=== PATIENT | male | born 1990 | race Asian ===

== ENCOUNTER 2018-06-24 20:08 | Inpatient (IN) | payer BC ==
[2018-06-24] MEDS ORDERED: NORMAL SALINE 1000 ML 1,000 ML IV ONE (20:34)
[2018-06-24] MEDS ORDERED: IBUPROFEN 800 MG TABLET PO ONE (20:37)
[2018-06-24 22:37] LABS: ABSOLUTE LYMPHOCYTES (AUTO) 1.1 10^3/uL (0.5-4.7); ABSOLUTE MONOCYTES (AUTO) 1.1 10^3/uL (0.1-1.4); ABSOLUTE NEUT (AUTO) 11.9 10^3/uL (1.7-8.2); BASOPHILS % (AUTO) 0.3 % (0-2); HEMATOCRIT 38.7 % (37.9-51.0); HEMOGLOBIN 13.4 g/dL (13.5-17.0); LYMPHOCYTES % (AUTO) 7.8 % (13-45); MEAN CORPUSCULAR HEMOGLOBIN 28.8 pg (27.0-33.4); MEAN CORPUSCULAR HGB CONC 34.6 g/dL (32.0-36.0); MEAN CORPUSCULAR VOLUME 83 fl (80-97); PLATELET COUNT 232 10^3/uL (150-450); RED BLOOD COUNT 4.65 10^6/uL (4.35-5.55); RED CELL DISTRIBUTION WIDTH 12.3 % (11.5-14.0); SEGMENTED NEUTROPHILS % (AUTO) 83.9 % (42-78); TOTAL CELLS COUNTED % (AUTO) 100 %; WHITE BLOOD COUNT 14.1 10^3/uL (4.0-10.5)
[2018-06-24 22:46] LABS: ALANINE AMINOTRANSFERASE 34 U/L (21-72); ALBUMIN 4.4 g/dL (3.5-5.0); ALKALINE PHOSPHATASE 52 U/L (38-126); ANION GAP 13 (5-19); ASPARTATE AMINO TRANSFERASE 27 U/L (17-59); BILIRUBIN,DIRECT 0.6 mg/dL (0.0-0.4); BILIRUBIN,TOTAL 1.1 mg/dL (0.2-1.3); BLOOD UREA NITROGEN 13 mg/dL (7-20); CALCIUM 9.3 mg/dL (8.4-10.2); CARBON DIOXIDE 23 mmol/L (22-30); CHLORIDE 99 mmol/L (98-107); GLUCOSE 108 mg/dL (75-110); POTASSIUM 3.7 mmol/L (3.6-5.0); SODIUM 134.7 mmol/L (137-145)
[2018-06-25] MEDS ORDERED: CEFTRIAXONE 1 GM/D5W RTU 1 GM/50 ML RTUPB IV ONE (07:18)
--- NOTE | 2018-06-25 07:22 | ER Document Report ---
ED Medical Screen (RME) - General Chief Complaint: Wound Infection Stated Complaint: POSSIBLE INSECT BITE Time Seen by Provider: 06/25/18 07:14 Mode of Arrival: Ambulatory Information source: Patient Notes: Patient presents to emergency department with complaints of pain to the right lower anterior leg. Ports spider bite that occurred on Monday that was itchy. Monday area became inflammed red. Reports some pain radiating into his lateral thigh area. He went to urgent care last night at approximately 7:55 PM and was told to come to ED. Reports temperature of 103 upon arrival. He was given Tylenol at urgent care and ibuprofen upon arrival here. Denies vomiting diarrhea. - Related Data Allergies/Adverse Reactions: No Known Allergies Allergy (Unverified 06/24/18 20:13) Past Medical History - Social History Frequency of alcohol use: None Drug Abuse: None Renal/ Medical History: Denies: Hx Peritoneal Dialysis Physical Exam - Vital signs Vitals: Temp Pulse BP Pulse Ox 102.7 F H 128 H 139/79 H 97 06/24/18 20:24 06/24/18 20:24 06/24/18 20:24 06/24/18 20:24 Course - Vital Signs Vital signs: Temp Pulse Resp BP Pulse Ox 98.6 F 90 18 126/77 H 99 06/25/18 05:38 06/25/18 05:38 06/25/18 05:38 06/25/18 05:38 06/25/18 05:38 - Laboratory Result Diagrams: 06/24/18 22:15 06/24/18 22:15 Laboratory results interpreted by me: 06/24/18 06/24/18 22:15 22:15 WBC 14.1 H Hgb 13.4 L Seg Neutrophils % 83.9 H Lymphocytes % 7.8 L Absolute Neutrophils 11.9 H Sodium 134.7 L Direct Bilirubin 0.6 H
[2018-06-25] MEDS ORDERED: CEFTRIAXONE SODIUM 1,000 MG in NORMAL SALINE 50 ML IV ONE (08:00)
[2018-06-25] MEDS ORDERED: VANCOMYCIN HCL INJ 1000 MG VIAL IV ONE (08:06)
--- NOTE | 2018-06-25 08:13 | ER Document Report ---
ED General - General Chief Complaint: Wound Infection Stated Complaint: POSSIBLE INSECT BITE Time Seen by Provider: 06/25/18 07:14 Mode of Arrival: Ambulatory - HPI Notes: Patient is a 28-year-old male that presents to the emergency department for chief complaint of right leg insect bite. Patient presents to the emergency room for bite to his right lower extremity. He states days ago he noticed a scab that was itchy on his right rodgers. The following day he started to develop fevers. His highest fever at home was 103. Patient states yesterday the area began to get red and more swollen. He is now having pain radiating up into his thigh. The pain is sharp and constant. It is worse with palpitation and ambulation. It is relieved slightly with elevation of the leg. He did not see an insect bite or remember getting bit by anything. He denies history of abscess in the past. He denies IV drug use. He was seen at an urgent care yesterday evening and referred to the emergency room for further evaluation. Patient states ibuprofen did give him relief of his fever symptoms and pain. Past Medical History: Negative Past Surgical History: Negative Social History: Denies drugs alcohol and tobacco Family History: Reviewed and noncontributory for presenting illness Allergies: Reviewed, see documented allergy list. REVIEW OF SYSTEMS: CONSTITUTIONAL : fever No chills No diaphoresis No recent illness EENT: No vision changes No congestion No sore throat CARDIOVASCULAR: No chest pain No palpitations RESPIRATORY: No shortness of breath No cough No difficulty breathing GASTROINTESTINAL: No abdominal pain No nausea No vomiting No diarrhea GENITOURINARY: No dysuria No hematuria No difficulty urinating MUSCULOSKELETAL: No back pain No leg pain No arm pain SKIN: No rashes Right leg lesion LYMPHATIC: No swollen, enlarged glands. NEUROLOGICAL: No lightheadedness No headache No weakness No paresthesias PSYCHIATRIC: No anxiety No depression PHYSICAL EXAMINATION: Vital signs reviewed, nursing noted reviewed. GENERAL: Well-appearing, well-nourished and in no acute distress. HEAD: Atraumatic, normocephalic. EYES: Eyes appear normal, extraocular movements intact, sclera anicteric, conjunctiva are normal. ENT: nares patent, oropharynx clear without exudates. Moist mucous membranes. NECK: Normal range of motion, supple without lymphadenopathy LUNGS: Breath sounds clear to auscultation bilaterally and equal. No wheezes rales or rhonchi. HEART: Regular rate and rhythm without murmurs ABDOMEN: Soft, nontender, normoactive bowel sounds. No rebound, guarding, or rigidity. No masses appreciated. EXTREMITIES: Nontender, good range of motion, no pitting or edema. NEUROLOGICAL: No focal neurological deficits. Moves all extremities spontaneously Motor and sensory grossly intact on exam. PSYCH: Normal mood, normal affect. SKIN: Warm, Dry, normal turgor. Right pretibial area of induration, calor and erythema with central clearing consistent. Serous drainage from central clearing. Erythematous streaking up medial thigh - Related Data Allergies/Adverse Reactions: No Known Allergies Allergy (Unverified 06/24/18 20:13) Past Medical History - General Information source: Patient - Social History Smoking Status: Never Smoker Frequency of alcohol use: None Drug Abuse: None Family History: Reviewed & Not Pertinent Patient has suicidal ideation: No Patient has homicidal ideation: No Renal/ Medical History: Denies: Hx Peritoneal Dialysis Review of Systems - Review of Systems Notes: Dictated Physical Exam - Vital signs Vitals: Temp Pulse BP Pulse Ox 102.7 F H 128 H 139/79 H 97 06/24/18 20:24 06/24/18 20:24 06/24/18 20:24 06/24/18 20:24 - Notes Notes: Dictated Course - Re-evaluation Re-evalutation: 06/25/18 08:12 Vitals reviewed. Patient is afebrile. Nursing notes reviewed. He has significant erythema and cellulitis to his right lower extremity with lymphatic streaking through medial thigh. Patient is requiring IV antibiotics for further treatment. He was given a dose of vancomycin and fluids in the emergency room. Patient is meeting sepsis criteria for fever and white count, blood cultures were obtained. Patient has remained stable while in the emergency room. He will be admitted to the hospital for further IV antibiotics. Case discussed with admitting physician . Laboratory 06/24/18 06/24/18 06/25/18 22:15 22:15 09:14 WBC 14.1 H RBC 4.65 Hgb 13.4 L Hct 38.7 MCV 83 MCH 28.8 MCHC 34.6 RDW 12.3 Plt Count 232 Seg Neutrophils % 83.9 H Lymphocytes % 7.8 L Monocytes % 8.0 Eosinophils % 0.0 Basophils % 0.3 Absolute Neutrophils 11.9 H Absolute Lymphocytes 1.1 Absolute Monocytes 1.1 Absolute Eosinophils 0.0 Absolute Basophils 0.0 Sodium 134.7 L Potassium 3.7 Chloride 99 Carbon Dioxide 23 Anion Gap 13 BUN 13 Creatinine 0.96 Est GFR ( Amer) > 60 Est GFR (Non-Af Amer) > 60 Glucose 108 Lactic Acid 3.9 H Calcium 9.3 Total Bilirubin 1.1 Direct Bilirubin 0.6 H Neonat Total Bilirubin Not Reportable Neonat Direct Bilirubin Not Reportable Neonat Indirect Bili Not Reportable AST 27 ALT 34 Alkaline Phosphatase 52 Total Protein 8.0 Albumin 4.4 - Vital Signs Vital signs: Temp Pulse Resp BP Pulse Ox 98.6 F 90 18 126/77 H 99 06/25/18 05:38 06/25/18 05:38 06/25/18 05:38 06/25/18 05:38 06/25/18 05:38 - Laboratory Result Diagrams: 06/24/18 22:15 06/24/18 22:15 Laboratory results interpreted by me: 06/24/18 06/24/18 06/25/18 22:15 22:15 09:14 WBC 14.1 H Hgb 13.4 L Seg Neutrophils % 83.9 H Lymphocytes % 7.8 L Absolute Neutrophils 11.9 H Sodium 134.7 L Lactic Acid 3.9 H Direct Bilirubin 0.6 H Discharge - Discharge Clinical Impression: Cellulitis Qualifiers: Site of cellulitis: extremity Site of cellulitis of extremity: lower extremity Laterality: right Qualified Code(s): L03.115 - Cellulitis of right lower limb Sepsis Qualifiers: Sepsis type: sepsis due to unspecified organism Qualified Code(s): A41.9 - Sepsis, unspecified organism Condition: Stable Disposition: ADMITTED INPATIENT Admitting Provider: Hospitalist
[2018-06-25] MEDS ORDERED: NORMAL SALINE 1000 ML 1,000 ML IV ONE (11:12)
[2018-06-25 12:18] LABS: APPEARANCE,URINE SLIGHTLY-CLOUDY; BILIRUBIN,URINE NEGATIVE (NEGATIVE); COLOR,URINE YELLOW; GLUCOSE, URINE NEGATIVE (NEGATIVE); KETONES,URINE 80 mg/dL (NEGATIVE); LEUKOCYTE ESTERASE,URINE NEGATIVE (NEGATIVE); NITRITE,URINE NEGATIVE (NEGATIVE); PROTEIN,URINE >=500 mg/dL (NEGATIVE); URINE SPECIFIC GRAVITY 1.026
[2018-06-25] MEDS ORDERED: ACETAMINOPHEN 325 MG TABLET ONE (13:55)
[2018-06-25] MEDS ORDERED: IBUPROFEN 400 MG TABLET PO PRN (15:41)
[2018-06-25] MEDS ORDERED: RINGERS SOLUTION,LACTATED 1,000 ML IV PRN (17:38)
[2018-06-25] MEDS ORDERED: ONDANSETRON HCL INJ/PF 4 MG/2 ML SDV IV PRN (17:54)
[2018-06-25] MEDS ORDERED: CEFTRIAXONE 2 GM/D5W RTU 2 GM/50 ML RTUPB IV SCH (18:00)
[2018-06-25] MEDS ORDERED: CEFTRIAXONE SODIUM 2,000 MG in NORMAL SALINE 100 ML IV SCH (22:00)
--- NOTE | 2018-06-25 23:51 | PDOC H&P ---
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 He has recently suffered some ant bites on his fingers well working. Denies any known tick bites. The scab was somewhat pruritic and he scratched it off. The next day he began to develop some redness. By the next day he developed patch of increasing erythema progressively increasing in size with associated pain and swelling, and then developed fever. He presented to urgent care where he was seen and referred to the emergency department. In the emergency department, he was felt to have cellulitis significant enough to require hospitalization, and in fact met criteria for sepsis with fever, tachycardia, leukocytosis, and identifiable infectious source. No organ dysfunction. He was given 1 dose of vancomycin in the ER, then referred to the hospitalist for admission for further evaluation and treatment.. Past Medical History Medical History: None Psychiatric Medical History: Denies: Depression Past Surgical History Past Surgical History: Reports: None Social History Information Source: Patient, Parent Smoking Status: Never Smoker Frequency of Alcohol Use: None Hx Recreational Drug Use: No Drugs: None Hx Prescription Drug Abuse: No - Advance Directive Resuscitation Status: Full Code Family History Family History: DM Parental Family History Reviewed: Yes Children Family History Reviewed: NA Sibling(s) Family History Reviewed.: Yes Medication/Allergy Home Medications: No Home Medications 06/25/18 Allergies/Adverse Reactions: No Known Allergies Allergy (Unverified 06/24/18 20:13) Review of Systems All systems: reviewed and no additional remarkable complaints except as stated Physical Exam Vital Signs: Temp Pulse Resp BP Pulse Ox 102.8 F H 114 H 18 119/59 L 96 06/25/18 16:00 06/25/18 16:00 06/25/18 16:00 06/25/18 16:00 06/25/18 16:00 Additional comments: Constitutional: Well-developed, well-nourished, no apparent distress. ENT: Oral mucous membranes pink and moist. Sclera anicteric. Conjunctive are noninjected. Neck: No visible JVD. Trachea midline. No palpable lymphadenopathy. Lungs: Clear to auscultation bilaterally. Heart: Regular rhythm, tachycardic mildly, no murmur or rub. Abdomen: Low pitched active bowel sounds, soft, nontender, nondistended. Extremities: No clubbing or cyanosis. 1+ edema of the right lower extremity into the foot. Skin: Warm, dry, intact over the vast majority of skin surface. Large bright red confluent erythema patch over the right pretibial area with a centrally located pinhole size open wound draining small amount of whitish yellow pus surrounded by approximately 1 cm x 1.5 cm dark purple tissue. Margins of erythematous patch are fairly well demarcated. Area is hot to the touch. Tender to palpation. No palpable fluctuance. No loose sliding skin or ecchymosis to suggest necrotizing fasciitis. There is a faint red streak of erythema up the medial thigh from the knee to the groin approximately 2 cm wide. This is not hot, but is mildly tender to palpation. No palpable or tender inguinal lymph nodes in the right inguinal canal. Neurologic: Neurovascularly intact distally in the right lower extremity. No focal deficits demonstrated. Results Laboratory Results: 06/25/18 06/25/18 12:00 13:27 Lactic Acid 1.6 Urine Color YELLOW Urine Appearance SLIGHTLY-CLOUDY Urine pH 5.0 Ur Specific [place] 1.026 Urine Protein >=500 H Urine Glucose (UA) NEGATIVE Urine Ketones 80 H Urine Blood SMALL H Urine Nitrite NEGATIVE Ur Leukocyte Esterase NEGATIVE Urine WBC (Auto) 4 Urine RBC (Auto) 4 Assessment & Plan - Diagnosis (1) Sepsis Qualifiers: Sepsis type: sepsis due to unspecified organism Qualified Code(s): A41.9 - Sepsis, unspecified organism Is this a current diagnosis for this admission?: Yes Plan: Continue vancomycin in case of community acquired MRSA, managed by pharmacy. Add Rocephin to cover other usual staph and strep organisms associated with cellulitis. It appears he may have received 1 L of IV fluid in urgent care. Received 1 L IV fluid in ER. By my calculation of 30 mL/kilogram, he should get a total of about 2850 mL IV fluid, so we will run in another liter at 500 mL/hour. Initial lactic acid level was elevated at 3.9, but second levels already normalized to 1.6. Tylenol 650 mg orally every 4 hours as needed fever or pain alternating with ibuprofen 400 mg orally every 4 hours as needed for pain or fever, so that he could potentially receive anti-pyretic/analgesic every 2 hours. Await results of blood cultures drawn in the ER Will get wound culture as well. (2) Cellulitis of right lower extremity without foot Is this a current diagnosis for this admission?: Yes Plan: Same as above for sepsis. Also, elevate right lower extremity with foot of bed and with pillows - Time Time Spent: 50 to 70 Minutes Anticipated discharge: Home Within: within 72 hours
[2018-06-26] MEDS: ACETAMINOPHEN 325 MG TABLET PO PRN ×2 (04:05→20:14)
[2018-06-26 07:15] LABS: ABSOLUTE LYMPHOCYTES (AUTO) 0.8 10^3/uL (0.5-4.7); ABSOLUTE MONOCYTES (AUTO) 1.3 10^3/uL (0.1-1.4); ABSOLUTE NEUT (AUTO) 9.4 10^3/uL (1.7-8.2); BASOPHILS % (AUTO) 0.1 % (0-2); EOSINOPHILS % (AUTO) 0.4 % (0-6); HEMATOCRIT 34.9 % (37.9-51.0); HEMOGLOBIN 12.3 g/dL (13.5-17.0); LYMPHOCYTES % (AUTO) 6.8 % (13-45); MEAN CORPUSCULAR HEMOGLOBIN 28.9 pg (27.0-33.4); MEAN CORPUSCULAR HGB CONC 35.2 g/dL (32.0-36.0); MEAN CORPUSCULAR VOLUME 82 fl (80-97); PLATELET COUNT 174 10^3/uL (150-450); RED BLOOD COUNT 4.25 10^6/uL (4.35-5.55); RED CELL DISTRIBUTION WIDTH 12.2 % (11.5-14.0); SEGMENTED NEUTROPHILS % (AUTO) 81.7 % (42-78); TOTAL CELLS COUNTED % (AUTO) 100 %; WHITE BLOOD COUNT 11.5 10^3/uL (4.0-10.5)
[2018-06-26 07:33] LABS: ANION GAP 10 (5-19); BLOOD UREA NITROGEN 7 mg/dL (7-20); CALCIUM 8.5 mg/dL (8.4-10.2); CARBON DIOXIDE 22 mmol/L (22-30); CHLORIDE 105 mmol/L (98-107); GLUCOSE 118 mg/dL (75-110); POTASSIUM 3.4 mmol/L (3.6-5.0)
[2018-06-26] MEDS ORDERED: VANCOMYCIN HCL 0 MG in DEXTROSE 5%-WATER 250 ML IV NR (09:30)
[2018-06-26] MEDS: ENOXAPARIN SODIUM INJ 40 MG/0.4 ML DISP.SYRIN SUBCUT SCH (10:24)
[2018-06-26] MEDS: VANCOMYCIN HCL 1,250 MG in DEXTROSE 5%-WATER 250 ML IV SCH ×3 (11:44→23:17)
--- NOTE | 2018-06-26 16:13 | PDOC PROGRESS REPORT ---
Subjective Progress Note for:: 06/26/18 Subjective:: Assumed care today. Mr. Michele is a 28 yr male with no significant PMH who was admitted for right leg cellulitis. No acute event overnight. He says the pain is slightly better today. He continues to have erythema and tenderness on the right leg. No fever or chills. Reason For Visit: RLE CELLULITUS,SEPSIS Physical Exam Vital Signs: Temp Pulse Resp BP Pulse Ox 99.1 F 102 H 18 127/72 H 100 06/26/18 15:17 06/26/18 15:17 06/26/18 15:17 06/26/18 15:17 06/26/18 15:17 Intake & Output 06/25/18 06/26/18 06/27/18 06:59 06:59 06:59 Intake Total 3100 250 Balance 3100 250 General appearance: PRESENT: no acute distress, well-developed, well-nourished Head exam: PRESENT: atraumatic, normocephalic Eye exam: PRESENT: conjunctiva pink, EOMI, PERRLA. ABSENT: scleral icterus Ear exam: PRESENT: normal external ear exam Mouth exam: PRESENT: moist, tongue midline Neck exam: ABSENT: carotid bruit, JVD, lymphadenopathy, thyromegaly Respiratory exam: PRESENT: clear to auscultation francisca. ABSENT: rales, rhonchi, wheezes Cardiovascular exam: PRESENT: RRR. ABSENT: diastolic murmur, rubs, systolic murmur Pulses: PRESENT: normal dorsalis pedis pul GI/Abdominal exam: PRESENT: normal bowel sounds, soft. ABSENT: distended, guarding, mass, organolmegaly, rebound, tenderness Rectal exam: PRESENT: deferred Musculoskeletal exam: PRESENT: other - Note of erythematous and tender areas of the right leg, full peripheral pulses, lesions have not gone beyond the demarcated lesions in the right leg but patient does have an area of erythema on the right medial thigh which he says has been there when he was admitted. Neurological exam: PRESENT: alert, awake, oriented to person, oriented to place , oriented to time, oriented to situation, CN II-XII grossly intact. ABSENT: motor sensory deficit Results Laboratory Results: 06/26/18 06:53 06/26/18 06:53 06/26/18 06/26/18 06:53 06:53 WBC 11.5 H RBC 4.25 L Hgb 12.3 L Hct 34.9 L MCV 82 MCH 28.9 MCHC 35.2 RDW 12.2 Plt Count 174 Seg Neutrophils % 81.7 H Lymphocytes % 6.8 L Monocytes % 11.0 Eosinophils % 0.4 Basophils % 0.1 Absolute Neutrophils 9.4 H Absolute Lymphocytes 0.8 Absolute Monocytes 1.3 Absolute Eosinophils 0.0 Absolute Basophils 0.0 Sodium 137.0 Potassium 3.4 L Chloride 105 Carbon Dioxide 22 Anion Gap 10 BUN 7 Creatinine 0.69 Est GFR ( Amer) > 60 Est GFR (Non-Af Amer) > 60 Glucose 118 H Calcium 8.5 Magnesium 2.0 Assessment & Plan - Diagnosis (1) Sepsis Qualifiers: Sepsis type: sepsis due to unspecified organism Qualified Code(s): A41.9 - Sepsis, unspecified organism Is this a current diagnosis for this admission?: Yes Plan: Sepsis secondary to right leg cellulitis. Patient did have initial lactic acidosis which has since resolved after fluid resuscitation. Initial blood culture grew gram-positive cocci 1/2 bottles. Rocephin switched to vancomycin. (2) Cellulitis Qualifiers: Site of cellulitis: extremity Site of cellulitis of extremity: lower extremity Laterality: right Qualified Code(s): L03.115 - Cellulitis of right lower limb Is this a current diagnosis for this admission?: Yes Plan: Right leg cellulitis. Patient is currently on Rocephin. Blood culture came back positive initially for gram-positive cocci 1/2. Will switch Rocephin to vancomycin for now. (3) Gram-positive bacteremia Is this a current diagnosis for this admission?: Yes Plan: As mentioned, initial blood culture grew gram-positive cocci 1/2. Switch Rocephin to vancomycin. Will de-escalate pending final blood culture results.
[2018-06-27] MEDS: VANCOMYCIN HCL 1,250 MG in DEXTROSE 5%-WATER 250 ML IV SCH ×2 (05:26→12:02)
[2018-06-27] MEDS: ENOXAPARIN SODIUM INJ 40 MG/0.4 ML DISP.SYRIN SUBCUT SCH (08:59)
--- NOTE | 2018-06-27 16:01 | PDOC PROGRESS REPORT ---
Subjective Progress Note for:: 06/27/18 Subjective:: Assumed care today. Mr. Michele is a 28 yr male with no significant PMH who was admitted for right leg cellulitis. No acute event overnight. He says the pain is slightly better today. He continues to have erythema and tenderness on the right leg. No fever or chills. Upon re-evaluation of the right lower extremity, the erythema on the right leg has been about the same but the erythema on the right thigh has increased from yesterday. Reason For Visit: RLE CELLULITUS,SEPSIS Physical Exam Vital Signs: Temp Pulse Resp BP Pulse Ox 98.2 F 82 18 125/72 98 06/27/18 11:54 06/27/18 11:54 06/27/18 11:54 06/27/18 11:54 06/27/18 11:54 Intake & Output 06/26/18 06/27/18 06/28/18 06:59 06:59 06:59 Intake Total 3100 500 1440 Balance 3100 500 1440 General appearance: PRESENT: no acute distress, well-developed, well-nourished Head exam: PRESENT: atraumatic, normocephalic Eye exam: PRESENT: conjunctiva pink, EOMI, PERRLA. ABSENT: scleral icterus Ear exam: PRESENT: normal external ear exam Mouth exam: PRESENT: moist, tongue midline Neck exam: ABSENT: carotid bruit, JVD, lymphadenopathy, thyromegaly Respiratory exam: PRESENT: clear to auscultation francisca. ABSENT: rales, rhonchi, wheezes Cardiovascular exam: PRESENT: RRR. ABSENT: diastolic murmur, rubs, systolic murmur Pulses: PRESENT: normal dorsalis pedis pul GI/Abdominal exam: PRESENT: normal bowel sounds, soft. ABSENT: distended, guarding, mass, organolmegaly, rebound, tenderness Rectal exam: PRESENT: deferred Musculoskeletal exam: PRESENT: other - Note of erythematous and tender areas of the right leg, full peripheral pulses, lesions have not gone beyond the demarcated lesions in the right leg but patient does the erythema on the right medial thigh has increased from yesterday Neurological exam: PRESENT: alert, awake, oriented to person, oriented to place , oriented to time, oriented to situation, CN II-XII grossly intact. ABSENT: motor sensory deficit Results Laboratory Results: 06/26/18 06:53 06/26/18 06:53 Assessment & Plan - Diagnosis (1) Sepsis Qualifiers: Sepsis type: sepsis due to unspecified organism Qualified Code(s): A41.9 - Sepsis, unspecified organism Is this a current diagnosis for this admission?: Yes Plan: Sepsis secondary to right leg cellulitis. Patient did have initial lactic acidosis which has since resolved after fluid resuscitation. Initial blood culture grew gram-positive cocci 1/2 bottles. Wound culture grew group A beta Strep. Will switch vancomycin to clindamycin. (2) Cellulitis Qualifiers: Site of cellulitis: extremity Site of cellulitis of extremity: lower extremity Laterality: right Qualified Code(s): L03.115 - Cellulitis of right lower limb Is this a current diagnosis for this admission?: Yes Plan: Right leg cellulitis. Blood culture came back positive initially for gram- positive cocci 1/2. Erythema on the right medial thigh has increased in size. Wound culture grew group A beta Strep. Will switch vancomycin to clindamycin. (3) Gram-positive bacteremia Is this a current diagnosis for this admission?: Yes Plan: As #2. - Time Time Spent with patient: 15-24 minutes
[2018-06-27] MEDS: CLINDAMYCIN 300 MG/D5W RTU 300 MG/50 ML RTUPB IV SCH ×2 (16:09→21:00)
[2018-06-28] MEDS: CLINDAMYCIN 300 MG/D5W RTU 300 MG/50 ML RTUPB IV SCH ×2 (03:07→12:57)
[2018-06-28 08:53] LABS: ABSOLUTE BASOPHILS # (AUTO) 0.1 10^3/uL (0.0-0.2); ABSOLUTE EOSINOPHILS # (AUTO) 0.4 10^3/uL (0.0-0.6); ABSOLUTE LYMPHOCYTES (AUTO) 1.5 10^3/uL (0.5-4.7); ABSOLUTE MONOCYTES (AUTO) 0.6 10^3/uL (0.1-1.4); ABSOLUTE NEUT (AUTO) 4.2 10^3/uL (1.7-8.2); BASOPHILS % (AUTO) 0.8 % (0-2); EOSINOPHILS % (AUTO) 6.5 % (0-6); HEMATOCRIT 37.6 % (37.9-51.0); HEMOGLOBIN 12.7 g/dL (13.5-17.0); LYMPHOCYTES % (AUTO) 22.6 % (13-45); MEAN CORPUSCULAR HEMOGLOBIN 28.1 pg (27.0-33.4); MEAN CORPUSCULAR HGB CONC 33.9 g/dL (32.0-36.0); MEAN CORPUSCULAR VOLUME 83 fl (80-97); MONOCYTES % (AUTO) 8.2 % (3-13); PLATELET COUNT 276 10^3/uL (150-450); RED BLOOD COUNT 4.53 10^6/uL (4.35-5.55); RED CELL DISTRIBUTION WIDTH 12.6 % (11.5-14.0); SEGMENTED NEUTROPHILS % (AUTO) 61.9 % (42-78); TOTAL CELLS COUNTED % (AUTO) 100 %; WHITE BLOOD COUNT 6.8 10^3/uL (4.0-10.5)
[2018-06-28 09:14] LABS: ANION GAP 9 (5-19); BLOOD UREA NITROGEN 10 mg/dL (7-20); CALCIUM 8.8 mg/dL (8.4-10.2); CARBON DIOXIDE 26 mmol/L (22-30); CHLORIDE 106 mmol/L (98-107); GLUCOSE 111 mg/dL (75-110); POTASSIUM 3.8 mmol/L (3.6-5.0); SODIUM 140.7 mmol/L (137-145)
[2018-06-28] MEDS: ENOXAPARIN SODIUM INJ 40 MG/0.4 ML DISP.SYRIN SUBCUT SCH (12:57)
--- NOTE | 2018-06-28 12:59 | PDOC DISCHARGE SUMMARY ---
General - Admit/Disc Date/PCP Admission Date/Primary Care Provider: 06/25/18 10:54 Discharge Date: 06/28/18 - Discharge Diagnosis (1) Sepsis Is this a current diagnosis for this admission?: Yes (2) Cellulitis Is this a current diagnosis for this admission?: Yes (3) Gram-positive bacteremia Is this a current diagnosis for this admission?: Yes - Additional Information Resuscitation Status: Full Code Discharge Diet: As Tolerated Discharge Activity: Activity As Tolerated Prescriptions: Clindamycin HCl 300 mg PO Q8H 5 Days #15 capsule Home Medications: Clindamycin HCl 300 mg PO Q8H 5 Days #15 capsule 06/28/18 History of Present Illness History of Present Illness: CIARRA WINSLOW is a 28 year old male who reports that he does not recall any insect bite, but noticed a small scab on his right rodgers and assumed he may have been bitten since 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 He has recently suffered some ant bites on his fingers well working. Denies any known tick bites. The scab was somewhat pruritic and he scratched it off. The next day he began to develop some redness. By the next day he developed patch of increasing erythema progressively increasing in size with associated pain and swelling, and then developed fever. He presented to urgent care where he was seen and referred to the emergency department. In the emergency department, he was felt to have cellulitis significant enough to require hospitalization, and in fact met criteria for sepsis with fever, tachycardia, leukocytosis, and identifiable infectious source. No organ dysfunction. Hospital Course Hospital Course: Mr. Winslow is a 28 yr male with no significant PMH who was admitted for sepsis secondary to right leg cellulitis. He was initially started on IV vancomycin. Initial lactic acid was likely elevated and patient was given IV fluids. Lactic acidosis promptly resolved with IV fluids. Patient's erythema and tenderness on the right leg did gradually improved. His wound cultures grew group A beta strep and MSSA and blood culture grew staph Cohnii 1/2 bottles which is deemed a contaminant. Patient's antibiotic was switched to IV clindamycin and he dramatically improved after a day of IV clindamycin. Patient will be discharged on oral clindamycin. His urinalysis was remarkable for proteinuria. Renal functions are normal. He denies previous history of renal problems. Urine protein creatinine ratio was sent on day of discharge and the results will be forwarded to patient's new PCP. Patient was also recommended to discuss possible nephrology referral with a new PCP for further workup of his proteinuria. Physical Exam Vital Signs: Temp Pulse Resp BP Pulse Ox 98.3 F 76 16 126/81 H 98 06/28/18 08:20 06/28/18 08:20 06/28/18 04:00 06/28/18 08:20 06/28/18 08:20 Intake & Output 06/27/18 06/28/18 06/29/18 06:59 06:59 06:59 Intake Total 500 1960 Balance 500 1960 General appearance: PRESENT: no acute distress, well-developed, well-nourished Head exam: PRESENT: atraumatic, normocephalic Eye exam: PRESENT: conjunctiva pink, EOMI, PERRLA. ABSENT: scleral icterus Ear exam: PRESENT: normal external ear exam Mouth exam: PRESENT: moist, tongue midline Neck exam: ABSENT: carotid bruit, JVD, lymphadenopathy, thyromegaly Respiratory exam: PRESENT: clear to auscultation francisca. ABSENT: rales, rhonchi, wheezes Cardiovascular exam: PRESENT: RRR. ABSENT: diastolic murmur, rubs, systolic murmur Pulses: PRESENT: normal dorsalis pedis pul GI/Abdominal exam: PRESENT: normal bowel sounds, soft. ABSENT: distended, guarding, mass, organolmegaly, rebound, tenderness Rectal exam: PRESENT: deferred Musculoskeletal exam: PRESENT: other - Areas of erythema and tenderness on the right leg have dramatically improved overnight. Neurological exam: PRESENT: alert, awake, oriented to person, oriented to place , oriented to time, oriented to situation, CN II-XII grossly intact. ABSENT: motor sensory deficit Results Laboratory Results: 06/28/18 08:35 06/28/18 08:35 06/28/18 06/28/18 08:35 08:35 WBC 6.8 RBC 4.53 Hgb 12.7 L Hct 37.6 L MCV 83 MCH 28.1 MCHC 33.9 RDW 12.6 Plt Count 276 Seg Neutrophils % 61.9 Lymphocytes % 22.6 Monocytes % 8.2 Eosinophils % 6.5 H Basophils % 0.8 Absolute Neutrophils 4.2 Absolute Lymphocytes 1.5 Absolute Monocytes 0.6 Absolute Eosinophils 0.4 Absolute Basophils 0.1 Sodium 140.7 Potassium 3.8 Chloride 106 Carbon Dioxide 26 Anion Gap 9 BUN 10 Creatinine 0.69 Est GFR ( Amer) > 60 Est GFR (Non-Af Amer) > 60 Glucose 111 H Calcium 8.8 Qualifiers - * PATIENT BEING DISCHARGED WITH ANY OF THE FOLLOWING DIAGNOSIS: No
[2018-06-28 13:05] VITALS: BP 100/60
[2018-06-28 13:23] LABS: URINE CREATININE 27.1 mg/dL (24-392); URINE PROTEIN 17.4 mg/dL (<12)
== END 2018-06-28 14:20 | disposition home or self-care (01) | DRG 872 ==
LOC: ER 20:08 → EH 06-25 10:54 → 2N 06-25 12:41
PROVIDERS: ADMIT Hospitalist; ATTEND Hospitalist
DX: A41.01 Sepsis due to Methicillin susceptible Staphylococcus aureus (principal); L03.115 Cellulitis of right lower limb; E87.2 Acidosis
CPT/HCPCS: 36415; 80048; 80053; 80202; 81001; 82570; 83605; 83735; 84156; 85025; 87040; 87070; 87077; 87186; 87205; 99284; J0696; J1650; J3370; J3490; J7060

== ENCOUNTER 2019-03-14 17:26 | Emergency (ER) | payer BC ==
--- NOTE | 2019-03-14 17:48 | ER Document Report ---
Addendum entered and electronically signed by SINDHU GARCIA NP 03/14/19 20:48: Past Medical History - General Information source: Patient - Social History Smoking Status: Never Smoker Frequency of alcohol use: None Drug Abuse: None Occupation: Maintenance Lives with: Family Family History: DM Patient has suicidal ideation: No Patient has homicidal ideation: No - Past Medical History Cardiac Medical History: Reports: None Pulmonary Medical History: Reports: None EENT Medical History: Reports: None Neurological Medical History: Reports: None Endocrine Medical History: Reports: None Renal/ Medical History: Reports: None Malignancy Medical History: Reports None GI Medical History: Reports: None Musculoskeletal Medical History: Reports None Skin Medical History: Reports None Psychiatric Medical History: Reports: None Traumatic Medical History: Reports: None Infectious Medical History: Reports: None Surgical Hx: Negative Past Surgical History: Reports: None Review of Systems - Review of Systems Constitutional: No symptoms reported EENT: No symptoms reported Cardiovascular: No symptoms reported Respiratory: No symptoms reported Gastrointestinal: Abdominal pain - Right upper quadrant. denies: Diarrhea, Nausea, Vomiting, Constipation Genitourinary: No symptoms reported Male Genitourinary: No symptoms reported Musculoskeletal: No symptoms reported Skin: No symptoms reported Hematologic/Lymphatic: No symptoms reported Neurological/Psychological: No symptoms reported -: Yes All other systems reviewed and negative Physical Exam - Vital signs Vitals: Temp Pulse Resp BP Pulse Ox 97.7 F 82 16 144/84 H 97 03/14/19 17:40 03/14/19 17:40 03/14/19 17:40 03/14/19 17:40 03/14/19 17:40 Interpretation: Normal - General General appearance: Appears well, Alert - HEENT Head: Normocephalic, Atraumatic Eyes: Normal Pupils: PERRL - Respiratory Respiratory status: No respiratory distress Chest status: Nontender Breath sounds: Normal Chest palpation: Normal - Cardiovascular Rhythm: Regular Heart sounds: Normal auscultation Murmur: No - Abdominal Inspection: Normal Distension: No distension Bowel sounds: Normal Tenderness: Tender - Very mild right upper quadrant. No: McBurney's point, Mulligan's sign, Guarding Organomegaly: No organomegaly. No: Hepatomegaly, Splenomegaly, Mass - Back Back: Normal, Nontender - Extremities General upper extremity: Normal inspection, Nontender, Normal color, Normal ROM, Normal temperature General lower extremity: Normal inspection, Nontender, Normal color, Normal ROM, Normal temperature, Normal weight bearing. No: Anirudh's sign - Neurological Neuro grossly intact: Yes Cognition: Normal Orientation: AAOx4 Janeth Coma Scale Eye Opening: Spontaneous [place] Coma Scale Verbal: Oriented [place] Coma Scale Motor: Obeys Commands [place] Coma Scale Total: 15 Speech: Normal Motor strength normal: LUE, RUE, LLE, RLE Sensory: Normal - Psychological Associated symptoms: Normal affect, Normal mood - Skin Skin Temperature: Warm Skin Moisture: Dry Skin Color: Normal Course - Re-evaluation Re-evalutation: 03/14/19 20:47 Discussed labs and ultrasound with patient and written report of labs and ultrasound given to patient to follow-up with primary care doctor. Patient verbalized understanding and agreement with treatment plan. Patient was discharged home. Patient was instructed to return to the emergency room immediately for any nausea vomiting or fever. - Vital Signs Vital signs: Temp Pulse Resp BP Pulse Ox 98.1 F 86 16 122/86 H 100 03/14/19 20:39 03/14/19 20:39 03/14/19 20:39 03/14/19 20:39 03/14/19 20:39 - Laboratory Result Diagrams: 03/14/19 17:57 03/14/19 17:57 - Diagnostic Test Radiology reviewed: Image reviewed, Reports reviewed Discharge - Discharge Clinical Impression: Right upper quadrant abdominal pain Condition: Stable Disposition: HOME, SELF-CARE Instructions: Evaluation of Upper Abdominal Pain ([facility]) Additional Instructions: ABDOMINAL PAIN: There are many causes of abdominal pain. Pain can mean a serious problem requiring surgery (such as appendicitis). It can also be an innocent problem that goes away on its own (such as a viral infection). Often, time must pass to determine the cause of pain. The physician does not feel that hospitalization is necessary, at present. Things may change within the next 24 hours. Call the doctor or come back for re- examination if any problems occur, such as: (1) Pain that becomes more severe, steady, or becomes concentrated in one specific area. Also, pain that is more severe with movement or coughing. (2) Vomiting that persists or becomes more frequent. (3) Blood in the vomitus, urine, or bowel movements. Blood in the stool may have a tarry or black appearance. (4) Shaking chills or fever greater than 100 degrees F. (5) The abdomen becomes more distended or swollen. (6) Bowel movements cease. (7) Failure to improve as expected. NORMAL EXAM AND WORKUP: At this time, your examination and workup show no significant abnormality. No significant abnormal physical findings are noted. All laboratory, EKG, and imaging (x-ray, CT scans, ultrasound) studies that were ordered show no significant abnormality. Although your examination and all studies that were ordered showed no significant abnormal finding, there are no examinations and no studies that are 100% accurate. There is always the possibility that some abnormality could exist and not be detected with physical examination or within the limits and capabilities of laboratory and other studies. You should return or follow up as you were instructed on your visit today for further evaluation if your symptoms do not resolve. I have discussed all of your labs and your upper abdominal ultrasound with you and given you written reports. Please call your primary doctor and schedule follow-up appointment to reevaluate your abdomen. FOLLOW-UP CARE: If you have been referred to a physician for follow-up care, call the physicia office for an appointment as you were instructed or within the next two days. If you experience worsening or a significant change in your symptoms, notify the physician immediately or return to the Emergency Department at any time for re-evaluation. Forms: Elevated Blood Pressure, Return to Work Referrals: MAURY WILHELM PA [NO LOCAL MD] - Follow up in 3-5 days Original Note: ED Medical Screen (RME) - General Chief Complaint: Abdominal Pain Stated Complaint: ABDOMINAL PAIN Time Seen by Provider: 03/14/19 17:44 Mode of Arrival: Ambulatory Information source: Patient Notes: 29-year-old male presents to ED for right upper quadrant abdominal pain since Monday. He states it is constant achy pain. He states movement makes the pain worse. He states neither eating nor drinking makes the pain worse. He states he has not had had any nausea or vomiting or diarrhea. Patient is alert oriented respirations regular and unlabored speaking in full sentences walks with even steady gait. I have greeted and performed a rapid initial assessment of this patient. A comprehensive ED assessment and evaluation of the patient, analysis of test results and completion of medical decision making process will be conducted by a n additional ED providers. Dictation of this chart was performed using voice recognition software; therefore, there may be some unintended grammatical errors. TRAVEL OUTSIDE OF THE [place] IN LAST 30 DAYS: No - Related Data Allergies/Adverse Reactions: No Known Allergies Allergy (Verified 03/14/19 17:30) Past Medical History Renal/ Medical History: Denies: Hx Peritoneal Dialysis Psychiatric Medical History: Denies: Hx Depression Physical Exam - Vital signs Vitals: Temp Pulse Resp BP Pulse Ox 97.7 F 82 16 144/84 H 97 03/14/19 17:40 03/14/19 17:40 03/14/19 17:40 03/14/19 17:40 03/14/19 17:40 Course - Vital Signs Vital signs: Temp Pulse Resp BP Pulse Ox 97.7 F 82 16 144/84 H 97 03/14/19 17:40 03/14/19 17:40 03/14/19 17:40 03/14/19 17:40 03/14/19 17:40
[2019-03-14 18:17] LABS: ABSOLUTE BASOPHILS # (AUTO) 0.1 10^3/uL (0.0-0.2); ABSOLUTE EOSINOPHILS # (AUTO) 0.2 10^3/uL (0.0-0.6); ABSOLUTE LYMPHOCYTES (AUTO) 2.4 10^3/uL (0.5-4.7); ABSOLUTE MONOCYTES (AUTO) 0.6 10^3/uL (0.1-1.4); ABSOLUTE NEUT (AUTO) 3.5 10^3/uL (1.7-8.2); BASOPHILS % (AUTO) 0.9 % (0-2); EOSINOPHILS % (AUTO) 2.6 % (0-6); HEMATOCRIT 41.2 % (37.9-51.0); HEMOGLOBIN 14.5 g/dL (13.5-17.0); LYMPHOCYTES % (AUTO) 35.1 % (13-45); MEAN CORPUSCULAR HEMOGLOBIN 29.4 pg (27.0-33.4); MEAN CORPUSCULAR HGB CONC 35.2 g/dL (32.0-36.0); MEAN CORPUSCULAR VOLUME 84 fl (80-97); MONOCYTES % (AUTO) 8.9 % (3-13); PLATELET COUNT 242 10^3/uL (150-450); RED BLOOD COUNT 4.94 10^6/uL (4.35-5.55); RED CELL DISTRIBUTION WIDTH 12.3 % (11.5-14.0); SEGMENTED NEUTROPHILS % (AUTO) 52.5 % (42-78); TOTAL CELLS COUNTED % (AUTO) 100 %; WHITE BLOOD COUNT 6.8 10^3/uL (4.0-10.5)
[2019-03-14 18:33] LABS: ALANINE AMINOTRANSFERASE 43 U/L (21-72); ALBUMIN 4.4 g/dL (3.5-5.0); ALKALINE PHOSPHATASE 68 U/L (38-126); ANION GAP 8 (5-19); ASPARTATE AMINO TRANSFERASE 35 U/L (17-59); BILIRUBIN,DIRECT 0.3 mg/dL (0.0-0.4); BILIRUBIN,TOTAL 0.3 mg/dL (0.2-1.3); BLOOD UREA NITROGEN 14 mg/dL (7-20); CALCIUM 9.6 mg/dL (8.4-10.2); CARBON DIOXIDE 28 mmol/L (22-30); CHLORIDE 105 mmol/L (98-107); GLUCOSE 79 mg/dL (75-110); LIPASE 142.4 U/L (23-300); SODIUM 140.7 mmol/L (137-145); TOTAL PROTEIN 7.5 g/dL (6.3-8.2)
[2019-03-14 18:34] LABS: APPEARANCE,URINE CLEAR; BILIRUBIN,URINE NEGATIVE (NEGATIVE); COLOR,URINE YELLOW; GLUCOSE, URINE NEGATIVE (NEGATIVE); KETONES,URINE NEGATIVE (NEGATIVE); LEUKOCYTE ESTERASE,URINE NEGATIVE (NEGATIVE); NITRITE,URINE NEGATIVE (NEGATIVE); PROTEIN,URINE NEGATIVE (NEGATIVE); URINE SPECIFIC GRAVITY 1.015; UROBILINOGEN,URINE NEGATIVE mg/dL (<2.0)
--- NOTE | 2019-03-14 19:37 | RADIOLOGY REPORT (SQ) ---
EXAM DESCRIPTION: U/S ABDOMEN LIMITED W/O DOP COMPLETED DATE/TIME: 03/14/2019 6:42 pm REASON FOR STUDY: ruq abdominal pain since monday COMPARISON: None. TECHNIQUE: Dynamic and static grayscale images acquired of the abdomen and recorded on PACS. Additio kathy selected color Doppler and spectral images recorded. LIMITATIONS: None. FINDINGS: PANCREAS: Poorly seen. No mass is seen in the head of the pancreas. LIVER: No masses. Echotexture normal. LIVER VASCULATURE: Normal directional flow of the main portal vein and hepatic veins. GALLBLADDER: Somewhat contracted. No stones. ULTRASOUND-DETECTED COYLE'S SIGN: Negative. INTRAHEPATIC DUCTS AND COMMON DUCT: CBD and intrahepatic ducts normal caliber. No filling defects. INFERIOR VENA CAVA: Normal flow. AORTA: No aneurysm. RIGHT KIDNEY: Normal size, 10.2 cm. Normal echogenicity. No solid or suspicious masses. No hydroneph rosis. No calcifications. PERITONEAL AND RIGHT PLEURAL SPACE: No ascites or effusions. OTHER: No other significant findings. IMPRESSION: NORMAL RIGHT UPPER QUADRANT ULTRASOUND. TECHNICAL DOCUMENTATION: JOB ID: [id number] [email or web address]- All Rights Reserved Reading location - IP/workstation name: [email or web address]
[2019-03-14 20:41] VITALS: BP 122/86
== END 2019-03-14 20:41 | disposition home or self-care (01) ==
LOC: ER 17:26
DX: R10.11 Right upper quadrant pain (principal)
CPT/HCPCS: 36415; 76705; 80053; 81001; 83690; 85025; 99284